=== PATIENT | female | born 1960 | race Caucasian/White ===

== ENCOUNTER 2017-11-21 06:56 | Emergency (ER) | payer OTHER ==
[2017-11-21] MEDS ORDERED: Morphine VIAL* 4 MG/ML VIAL (1 ml vial) IV ONE (07:24)
[2017-11-21] MEDS ORDERED: Ondansetron ODT TAB* 4 MG PO ONE (07:25)
--- NOTE | 2017-11-21 07:41 | ED ---
Upper Extremity Pain - HPI Summary HPI Summary: Pt. is a 57 y.o female who presents to the ER for a right wrist injury that occurred just prior to arrival. Pt. works at the [employer] and states she was unplugging machinery from the plane when is gave way and she fell back, landing onto her right hand. She did strike her head but denies LOC. She has no past medical history and is not anticoagulated. Symptoms are moderate in severity. Moving and touching wrist makes symptoms worse. Rest make symptoms better. - History of Current Complaint Chief Complaint: EDExtremityUpper Stated Complaint: RT WRIST INJURY Time Seen by Provider: 11/21/17 07:21 Hx Obtained From: Patient - Allergies/Home Medications Allergies/Adverse Reactions: Allergies Allergy/AdvReac Type Severity Reaction Status Date / Time No Known Allergies Allergy Verified 11/21/17 07:19 PMH/Surg Hx/FS Hx/Imm Hx Previously Healthy: Yes Infectious Disease History: No Infectious Disease History: Denies: Traveled Outside the [place] in Last 30 Days - Social History Occupation: Employed Full-time Lives: With Family Alcohol Use: Weekly Alcohol Amount: six beers Substance Use Type: Reports: None Smoking Status (MU): Never Smoked Tobacco Review of Systems Positive: Other - Right wrist injury Skin: Negative Neurological: Negative Negative: Weakness, Paresthesia, Numbness All Other Systems Reviewed And Are Negative: Yes Physical Exam Triage Information Reviewed: Yes Vital Signs On Initial Exam: Initial Vitals Temp Pulse Resp BP Pulse Ox 98.3 F 60 18 140/88 100 11/21/17 06:59 11/21/17 06:59 11/21/17 06:59 11/21/17 06:59 11/21/17 06:59 Vital Signs Reviewed: Yes Appearance: Positive: Well-Appearing - Patient sitting on bed in no acute distress. Pleasant. Splint on right wrist. Skin: Positive: Warm, Dry Head/Face: Positive: Normal Head/Face Inspection Eyes: Positive: Normal Neck: Positive: Supple Musculoskeletal: Positive: Other - Obvious deformity noted to the right wrist. No wounds. Good palpable radial pulse. Brisk capillary refill. No proximal injuries. Neurological: Positive: Normal, CN Intact II-III Procedures - Splinting Right Upper Extremity Hand-Made Type: orthoglass Splint: sugar-tong Pre-Proc Neuro Vasc Exam: normal Post-Proc Neuro Vasc Exam: normal Diagnostics - Vital Signs Vital Signs Temp Pulse Resp BP Pulse Ox 11/21/17 06:59 98.3 F 60 18 140/88 100 - Laboratory Lab Statement: Any lab studies that have been ordered have been reviewed, and results considered in the medical decision making process. Course/Dx - Course Course Of Treatment: Pt. presenting for an obvious right wrist deformity after a fall. UE is neurovascularly intact. IV was placed. Morphine and zofran ordered. Pending wrist xray. 0755: Pt. rang out and stated she was feeling dizzy. BP had dropped into the 80's/50's. IV fluids were started and cool clothe placed on floor head. BP improved and pt. started feeling better. Wrist xray per radiology: REPORT: There is a minimally impacted fracture at the distal right radius exhibiting 40. degrees of volar angulation on the lateral view. There is also a minimally displaced. fracture of the ulnar styloid tip. Remaining visualized bones are intact and appropriately. aligned. IMPRESSION: Comminuted fracture of the distal right radius and ulnar styloid tip as described above. Ortho., Dr. Centeno, was consulted. He will review pt.'s films and see her in the ER. He would like wrist splinted. Sugar tong splint was placed and sling. Pt. was examined in the ED by Dr. Centeno. He plans to take her to the OR next week for OIF. Rx for lortab sent to pharmacy. At time of discharge pt. states she is feeling much better and BP has remained stable. Will dc home with . Dr. Centeno' office will call her for surgery date. To Keep splint in place. Ice and elevate. To return to ER for numbness, tingling , or discoloration. Pt. understands and agrees with plan. - Diagnoses Differential Diagnosis/HQI/PQRI: Positive: Contusion, Fracture (Closed), Strain , Sprain Provider Diagnoses: Wrist fracture, closed - Physician Notifications Discussed Care of Patient With: Kenrick Centeno Discharge - Sign-Out/Discharge Documenting (check all that apply): Discharge/Admit/Transfer - Discharge Plan Condition: Good Disposition: HOME Prescriptions: Hydrocodone/Acetaminophen [Hydrocodone-Acetamin 5-325 mg] 1 each PO Q6H #20 tablet MDD 4tablets Patient Education Materials: Wrist Fracture in Adults (ED) Referrals: Conference Organizer,Nikki Mali, B[employer]ER [Primary Care Provider] - Kenrick Centeno MD [Medical Doctor] - Additional Instructions: Dr. Centeno' office will call you to schedule your surgery Keep splint in place Pain medication as directed Ice and elevate intermittently Return to ER for tingling, numbness or discoloration to hand/fingers - Billing Disposition and Condition Condition: GOOD Disposition: Home
[2017-11-21] MEDS ORDERED: NS 0.9% 1000 ML* 1,000 ML IV ONE (07:55)
--- NOTE | 2017-11-21 08:19 | RAD ---
INDICATION: Pain and deformity of the right wrist after a fall COMPARISON: None. TECHNIQUE: 3 views right wrist. REPORT: There is a minimally impacted fracture at the distal right radius exhibiting 40 degrees of volar angulation on the lateral view. There is also a minimally displaced fracture of the ulnar styloid tip. Remaining visualized bones are intact and appropriately aligned. IMPRESSION: Comminuted fracture of the distal right radius and ulnar styloid tip as described above.
[2017-11-21 10:15] VITALS: BP 132/74
== END 2017-11-21 09:45 | disposition home or self-care (01) ==
LOC: ED 06:56
DX: S52.501A Unspecified fracture of the lower end of right radius, initial encounter for closed fracture (principal); S52.611A Displaced fracture of right ulna styloid process, initial encounter for closed fracture; W19.XXXA Unspecified fall, initial encounter; Y93.89 Activity, other specified; Y92.520 Airport as the place of occurrence of the external cause
CPT/HCPCS: 29125; 96360; 96374; 99283; A9270-GY; J2270

== ENCOUNTER 2017-11-26 10:02 | Day surgery (SDC) | payer OTHER ==
[~2017-11-26 10:02] MED LIST: Buffered Lidocaine 0.9% SYRIN* 5 ML/SYR SYRINGE INTRADERM ONE; Dexamethasone IV* 4 MG/ML 1 ML (4 MG) IV SLOW PU ONE; Dexamethasone IV* 4 MG/ML 1 ML (4 MG) ONE; Famotidine IV* 10 MG/ML 2 ML (20 mg) IV ONE; Famotidine IV* 10 MG/ML 2 ML (20 mg) ONE; KETAMINE HCL* 50 MG/ML 10 ML VIAL ONE
[2017-11-26] MEDS ORDERED: ceFAZolin 2 GM PREMIX (*) 2 GM/50 ML BAG IVPB ONE (10:12)
[2017-11-26] MEDS ORDERED: Midazolam* 1 MG/ML 2 ML VIAL (2 MG) ONE (12:09)
[2017-11-26] MEDS ORDERED: fentaNYL* 50 MCG/ML 2 ML VIAL (100 MCG VIAL) ONE (12:09)
[2017-11-26] MEDS ORDERED: Bupivacaine 0.25% SDV* 30 ML ONE (12:44)
[2017-11-26] MEDS ORDERED: Propofol* 10 MG/ML 20 ML BTL IV PUSH ONE (13:06)
[2017-11-26] MEDS ORDERED: fentaNYL* 50 MCG/ML 2 ML VIAL (100 MCG VIAL) IV PRN (13:46)
[2017-11-26] MEDS ORDERED: Naloxone* 0.4 MG/ML 1 ML VIAL IV PRN (13:46)
[2017-11-26] MEDS ORDERED: Ondansetron ODT TAB* 4 MG PO PRN (13:46)
[2017-11-26] MEDS ORDERED: HYDROmorphone INJ* 1 MG/ML CARPUJECT SYRINGE IV PRN (13:46)
[2017-11-26 15:06] VITALS: BP 122/68
--- NOTE | 2017-11-26 21:34 | OP ---
DATE OF OPERATION: 11/26/17 - [facility] DATE OF : 56 SURGEON: Kenrick Centeno MD EVENTS SPECIALIST: DONALDO Moe. An entry level administrative assistant was needed for the procedure to aid in positioning of the arm and retraction. ANESTHESIOLOGIST: Alvaro Mckinney MD ANESTHESIA: General. PRE-OP DIAGNOSIS: Right displaced intraarticular, 3-fragment distal radius fracture. POST-OP DIAGNOSIS: Right displaced intraarticular, 3-fragment distal radius fracture. OPERATIVE PROCEDURE: Open reduction and internal fixation of right intraarticular, 3-fragment distal radius fracture. INDICATIONS: Archana had a very displaced distal radius fracture. Closed reduction maneuver was inadequate. She is young and quite healthy. We talked about risks and benefits. She wanted to proceed with surgery. ESTIMATED BLOOD LOSS: 5 mL. COMPLICATIONS: None. FINDINGS: As expected. DESCRIPTION OF PROCEDURE: Archana was seen in the preoperative holding area. The correct side, site, and procedure were identified. We came back to the operating room where the right arm was prepped and draped in the usual fashion. A time-out was performed. I began by exsanguinating the arm with the Esmarch and the tourniquet was inflated to 250 mmHg. I made a longitudinal incision over the distal FCR tendon. The FCR tendon sheath was opened. The tendon was retracted ulnarly. The subsheath was divided. The interval between the FPL and radial artery was developed. The pronator was released off the radial aspect of the distal radius and teed back transversely preserving the distal few millimeters of volar capsular ligament. The fracture edges were cleaned and then a reduction maneuver was performed. I did have the arm in 10 pounds of inline traction using the Arthrex hand chandra. Once I had the fracture reduced, I went ahead and brought in my Synthes distal radius plate. This was placed in position and pinned into place distally. I then placed a 2.4 mm cortical screw in the oblong hole. I removed the traction and obtained x-rays. Things were looking very nice, so I placed the traction back in place. I then placed a 2.4 mm cortical screw in the distal fragment so as to get excellent plate to bone apposition. I then filled the remainder of the three most ulnar holes using straight locking screws. The radial styloid screw was a variable angle locking screw. This was all from the Synthes variable angle distal radius plate set. I then placed two more cortical screws proximally. Traction was let off. Final fluoroscopic imaging showed excellent reduction of the fracture and appropriate hardware. The wound was irrigated out. The pronator was reapproximated with 3-0 Vicryl suture. The subcutaneous tissue was reapproximated with 3-0 Vicryl suture. Skin was closed with 4-0 Monocryl and Steri-Strips. A 0.25% plain Marcaine was infiltrated into the area. The wound was dressed with Xeroform, 4x4s, sterile Webril, and then a cock-up wrist splint was applied. Tourniquet was deflated and she was woken up and taken to the recovery room in stable condition. [id number]/[facility] #: [id number]
--- NOTE | 2017-11-27 14:53 | RAD ---
INDICATION: Right wrist, fall, fracture COMPARISONS: November 21, 2017 TECHNIQUE: Fluoroscopy was provided for a surgical procedure. Total fluoroscopy time is: 27 seconds FINDINGS: Spot images demonstrate internal fixation of the distal radius. IMPRESSION: FLUOROSCOPY WAS PROVIDED FOR A SURGICAL PROCEDURE CPT II Codes: G9500
== END 2017-11-26 15:07 | disposition home or self-care (01) ==
LOC: OREAST 10:02
PROVIDERS: ATTEND Orthopaedic Surgery Hand Surgery
DX: S52.571A Other intraarticular fracture of lower end of right radius, initial encounter for closed fracture (principal); W19.XXXA Unspecified fall, initial encounter; Y93.89 Activity, other specified; Y92.520 Airport as the place of occurrence of the external cause; Y99.0 Civilian activity done for income or pay; M19.90 Unspecified osteoarthritis, unspecified site
CPT/HCPCS: 76000; C1713; C1776; J0690; J1100; J2250; J2704; J3010